=== PATIENT | male | born 1945 | race Caucasian/White ===

== ENCOUNTER 2018-01-25 06:06 | Emergency (ER) | payer OTHER ==
[~2018-01-25] VITALS: Ht 167.6 cm; Wt 74.8 kg
[~2018-01-25 06:06] MED LIST: JANUVIA100 MG; LANTUS SOLOSTAR3 ML; LOSARTAN POTAS100 MG
== END 2018-01-25 08:23 | disposition home or self-care (01) ==
LOC: ER 06:06
DX: S00.03XA Contusion of scalp, initial encounter (principal); S40.012A Contusion of left shoulder, initial encounter; S16.1XXA Strain of muscle, fascia and tendon at neck level, initial encounter; W06.XXXA Fall from bed, initial encounter; Y93.89 Activity, other specified; Y92.013 Bedroom of single-family (private) house as the place of occurrence of the external cause; Y99.8 Other external cause status

== ENCOUNTER → 2018-04-09 | Emergency (ER) | payer OTHER ==
[~2018-04-09] VITALS: Ht 167.6 cm; Wt 77.1 kg
[~2018-04-09] MED LIST changes: +NEURONTIN300 MG; +NORFLEX100MG PO; +VOLTAREN-XR100 MG PO
== END | disposition home or self-care (01) ==
LOC: ER 20:29
DX: M54.5 Low back pain (principal)